=== PATIENT | female | born 1950 | race Caucasian/White ===

== ENCOUNTER 2021-01-05 09:29 | Inpatient (IN) | payer OTHER, SELFPAY ==
[~2021-01-05] VITALS: Ht 167.6 cm; Wt 103.0 kg
[2021-01-05 09:33] VITALS: BP_SYST 145
--- NOTE | 2021-01-05 09:33 | NUR ---
Placed in room 5 . Placed on cardiac monitor technician, blood pressure machine and pulse oximeter. To gown for exam. Side rails up. Report given to BJORN Saunders.
[2021-01-05] MEDS ORDERED: FUROSEMIDE 40 MG/4 ML VIAL IVP ONE (09:45)
--- NOTE | 2021-01-05 09:48 | NUR ---
Patient came to the ER due to her inability to get out of bed. The patient explained that she was sitting on her couch yesterday and was helped to bed and when she woke up this morning she was unable. Patient lower extremity has edema and patient is complaining of 2/10 pain in her thighs. Patient is AOx4 and not presenting any signs of respiratory distress. Patient on the gurney placed in the lowest position and side rails up.
--- NOTE | 2021-01-05 09:48 | NUR ---
ER Dr. Rey at bedside examining patient.
[2021-01-05 10:52] LABS: BASOPHILS % (AUTO) 0.3 % (0.0-2.0); EOSINOPHILS % (AUTO) 0.2 % (0.0-4.0); HEMATOCRIT 42.4 % (36-48); HEMOGLOBIN 13.9 g/dL (12.0-16.0); LYMPHOCYTES # (AUTO) 1.6 K/uL (1.0-5.5); LYMPHOCYTES % (AUTO) 15.2 % (20.5-51.5); MEAN CORPUSCULAR HEMOGLOBIN 29 pg (27-31); MEAN CORPUSCULAR HGB CONC 33 % (32-36); MEAN CORPUSCULAR VOLUME 89 fL (79.0-98.0); MONOCYTES # (AUTO) 0.4 K/uL (0.0-1.0); NEUTROPHILS # (AUTO) 8.6 K/uL (1.8-7.7); NEUTROPHILS % (AUTO) 80.3 % (40.0-70.0); PLATELET COUNT (AUTO) 209 K/uL (130-430); RED BLOOD CELL COUNT(AUTO) 4.78 MIL/uL (4.2-6.2); RED CELL DISTRIBUTION WIDTH 13.3 % (9.0-15.0); WHITE BLOOD COUNT (AUTO) 10.7 K/uL (4.8-10.8)
[2021-01-05 10:59] LABS: CALCIUM 9.2 mg/dL (8.4-11.0); CREATININE 0.64 mg/dL (0.55-1.30)
[2021-01-05 11:13] LABS: ALBUMIN 3.6 g/dL (3.4-4.8); THYROID STIMULATING HORMONE 1.13 uIu/mL (0.36-3.74); TOTAL BILIRUBIN 1.1 mg/dL (0.0-1.0)
[2021-01-05 11:25] LABS: BILIRUBIN,URINE NEGATIVE (NEGATIVE); BLOOD, URINE NEGATIVE (NEGATIVE); CLARITY/URINE CLEAR (CLEAR); COLOR,URINE YELLOW (YELLOW); GLUCOSE,URINE TRACE (NEGATIVE); KETONES,URINE 1+ (NEGATIVE); LEUKOCYTE ESTERASE ,URINE 1+ (NEGATIVE); NITRITE, URINE NEGATIVE (NEGATIVE); PROTEIN URINE NEGATIVE (NEGATIVE); UROBILINOGEN,URINE 0.2 (0.2-1.0)
--- NOTE | 2021-01-05 11:37 | NUR ---
During interviews with both RN and MD, patient denies any home medication. Received call from [facility] [phone] and was advised that he is not aware of any medication she is also taking.
[2021-01-05 11:40] LABS: BARBITURATE, URINE NEGATIVE (NEG <=200); BENZODIAZEPINE, URINE NEGATIVE (NEG <=150); CANNABINOID, URINE NEGATIVE (NEG <=50); COCAINE, URINE NEGATIVE (NEG <=150); METHAMPHETAMINES SCREEN,URINE NEGATIVE (NEG <=500); OPIATE, URINE NEGATIVE (NEG <=100); PHENCYCLIDINE SCREEN,URINE NEGATIVE (NEG <=25); UR TRICYCLIC ANTIDEPRESSANTS NEGATIVE (NEG <=300); URINE AMPHETAMINE NEGATIVE (NEG <=500); URINE METHADONE NEGATIVE (NEG <=200); URINE OXYCODONE SCREEN NEGATIVE (NEG <=100); URINE PROPOXYPHENE SCREEN NEGATIVE (NEG <=300)
[2021-01-05 12:17] LABS: BACTERIA,URINE FEW /HPF (None Seen); MUCUS,URINE 1+ /LPF (None Seen); RBC,URINE 0-3 /HPF (0-3)
--- NOTE | 2021-01-05 13:10 | NUR ---
Admit orders received from Dr. Escudero, pt will go to med-surg, talked to supercharger repair supervisor, Mya, pt will go to room 113B.
--- NOTE | 2021-01-05 14:25 | NUR ---
Patient will be admitted to care of Dr. Escudero. Admitted to MST unit. Will go to room 113B. Belongings list completed. Complete and up to date summary report printed. SBAR report to be given at bedside with opportunity for questions.
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
[2021-01-05 14:38] VITALS: BP_SYST 157
--- NOTE | 2021-01-05 15:36 | NUR ---
Family Communication Brother Oscar called from [phone] and stated that he was going to bring clothes and cell phone to hospital and leave in front. He will call once he does this. He also stated that pt is [place] due to her hearing aids being broke for over a year. He states that pt allowed her car which was leased to go back and has not really been anywhere since retiring last April. He states pt edema has been worsening but pt would not go to the doctor. He states that pt sits in her recliner and watches tv most of the time.
--- NOTE | 2021-01-05 16:10 | NUR ---
Wound Evaluation: Late note for 1610 secondary to patient care. Wound Consult ordered for Low Luc Score. Patient evaluated for a low Luc score of 12. Patient received in a Jelm Bed with an Isoflex ADRIANA mattress. Patient needs assist to turn in bed. Skin assessment: 1. Left Breast Fold: Intertrigo with erythema, present on admission. 2. Right Breast Fold: Intertrigo with erythema, present on admission. 3. Abdominal Fold: Intertrigo with erythema, present on admission. 4. Left Posterior Knee/Popliteal Fossa area: Intertrigo with erythema, present on admission. 5. Right Left Posterior Knee/Popliteal Fossa area: Intertrigo with erythema, present on admission. Recommend: Cleanse involved areas with mild soap and water. Pat dry. Apply antifungal powder to involved areas, Dust off excess powder. Cut Inter-dry AG cloth to size and place in between fold area. Perform site care twice daily. Change Inter-dry Ag cloth Q 5 days, and as needed for cloth soiling. 6. Left Inguinal area: Erythema from IAD, present on admission. 7. Right Inguinal area: Erythema from IAD, present on admission. 8. Perineal area: Erythema from IAD, present on admission. Recommend: Cleanse involved areas with mild soap and water. Pat dry. Apply Moisture barrier cream to involved areas. Perform site care 4 times daily and as needed for soiling. 9. Buttocks: Erythema from IAD, present on admission. Recommend: Cleanse involved area with mild soap and water. Pat dry. Apply Moisture barrier cream to involved area. Perform site care 4 times daily and as needed for soiling. 10. Sacral-Coccygeal area: Recommend: Cleanse involved area with mild soap and water. Pat dry. Apply Moisture barrier cream to involved area. Cover site with Sacral foam dressing. Perform site care daily and as needed for dressing soiling or dislodgment. Recommend encourage and assist patient as needed with repositioning side to side only every 2 hours with pillow support. Elevate, off-load and float bilateral heels with pillows. Offload pressure areas with pillows for pressure re-distribution. Perform skin care and monitor skin integrity Q shift. Use moisture barrier cream on moisture susceptible areas QID and PRN for soiling. Initiate low air-loss therapy.
[2021-01-05] MEDS ORDERED: LORazepam 2 MG/ML VIAL IVP PRN (19:00)
[2021-01-05] MEDS ORDERED: ONDANSETRON HCL 4 MG/2 ML VIAL IVP PRN (19:00)
[2021-01-05] MEDS ORDERED: ACETAMINOPHEN 325 MG TABLET PO PRN (19:00)
[2021-01-05] MEDS ORDERED: HYDROcodone/ACETAMIN 5-325 MG TAB (NORCO/ VICODIN) PO PRN (19:00)
[2021-01-05] MEDS ORDERED: NALOXONE HCL 0.4 MG/ML AMP (NARCAN) IVP PRN ×2 (19:00)
[2021-01-05] MEDS ORDERED: HYDROcodone/ACETAMIN 10-325 MG TAB PO PRN (19:00)
--- NOTE | 2021-01-05 19:30 | NUR ---
OPENING NOTE Patient is awake, alert, in bed, bed locked and in lowest position, bed alarm on, walker at bedside, respirations even and unlabored, on room air, call light within reach, will continue to monitor.
[2021-01-05 20:00] VITALS: BP_SYST 139
--- NOTE | 2021-01-05 21:00 | NUR ---
Rounding Note Patient is asleep, in bed, bed locked and in lowest position, respirations even and unlabored, no signs of respiratory distress, on room air, FWW and call light within reach. Will continue to monitor.
[2021-01-05] MEDS: INSULIN REGULAR, HUMAN 100 UNITS/ML, 10 ML VIAL (humuLIN R) SUBCUT PRN (21:34)
[2021-01-05] MEDS: FUROSEMIDE 20 MG/2 ML VIAL IVP SCH (21:37)
[2021-01-05] MEDS: NYSTATIN 15 GM TOPICAL POWDER TP SCH (21:37)
[2021-01-05] MEDS: NORMAL SALINE 5 ML DISP.SYRIN IVF SCH ×2 (21:42→21:43)
[2021-01-06 00:07] VITALS: BP_SYST 132
[2021-01-06] MEDS: NORMAL SALINE 5 ML DISP.SYRIN IVF SCH ×6 (05:51→21:01)
[2021-01-06] MEDS: INSULIN REGULAR, HUMAN 100 UNITS/ML, 10 ML VIAL (humuLIN R) SUBCUT PRN ×3 (06:24→20:49)
[2021-01-06 06:53] LABS: BASOPHILS % (AUTO) 0.3 % (0.0-2.0); EOSINOPHILS # (AUTO) 0.2 K/uL (0.0-0.4); EOSINOPHILS % (AUTO) 2.1 % (0.0-4.0); HEMATOCRIT 39.6 % (36-48); HEMOGLOBIN 13.1 g/dL (12.0-16.0); LYMPHOCYTES % (AUTO) 26.9 % (20.5-51.5); MEAN CORPUSCULAR HEMOGLOBIN 29 pg (27-31); MEAN CORPUSCULAR HGB CONC 33 % (32-36); MEAN CORPUSCULAR VOLUME 88 fL (79.0-98.0); NEUTROPHILS # (AUTO) 6.8 K/uL (1.8-7.7); NEUTROPHILS % (AUTO) 61.7 % (40.0-70.0); PLATELET COUNT (AUTO) 194 K/uL (130-430); RED BLOOD CELL COUNT(AUTO) 4.53 MIL/uL (4.2-6.2); RED CELL DISTRIBUTION WIDTH 13.3 % (9.0-15.0)
--- NOTE | 2021-01-06 06:54 | NUR ---
Closing Note Patient is asleep, in bed, bed locked and in lowest position, respirations even and unlabored, no signs of respiratory distress, on room air, FWW and call light within reach. Will continue to monitor, will endorse to day shift RN
[2021-01-06 07:06] LABS: CALCIUM 8.8 mg/dL (8.4-11.0); CREATININE 0.61 mg/dL (0.55-1.30); POTASSIUM 3.3 mmol/L (3.5-5.1)
[2021-01-06 08:00] VITALS: BP_SYST 122
--- NOTE | 2021-01-06 09:00 | NUR ---
SKIN ASSESMENT PATIENT'S SOAKED WITH URINE BUT DENIED THAT SHE PEE, STATED THAT WATER SPILLED, BOTH LEGS ARE SWOLLEN UNABLE TO MOVE DUE TO SIZE OF THE LEGS, PATIENT SCREAM ONCE YOU DO THE PERICARE, NEEDS 2 PEOPLE TO OPEN BOTH LEGS TO CLEAN THE PERIAREA. WITH REDNESS BUTTOCKS, BOTH CREASES ON KNEE ARE ARE RED, ABDOMINAL FOLD SLIGHT RED, APPLIED INTER AG DRY TO FOLDED AREAS, CREAM OINTMENT APPLIED TO BUTTOCKS AREA, WITH SCABS ON RIGHT FOOT, 3RD TOES. PICTURES TAKEN ON SKIN BREAKDOWN, ON AIR MATTRESS, TURNED AND REPOSITONED, SPONGE BATH PROVIDED TO PATIENT.
--- NOTE | 2021-01-06 09:20 | NUR ---
Nutrition Update Luc Scale 18 noted. Pt admitted for edema. Diet: cardiac, CCHO standard carb-60 gm BMI: 36.8 kg/m2 RD to follow per nutrition care standards.
[2021-01-06] MEDS: FUROSEMIDE 20 MG/2 ML VIAL IVP SCH ×2 (09:30→20:54)
--- NOTE | 2021-01-06 09:40 | NUR ---
FORRESTER CATH: # 16 FR Forrester catheter with 10 cc bulb inserted with use of sterile technique. Bulb inflated with 10 cc sterile water. Immediate return of 300 cc YELLOWISH urine noted. Bedside drainage bag placed below level of bladder. Urine sample collected and sent to lab. Pt tolerated procedure.
--- NOTE | 2021-01-06 11:05 | NUR ---
Case mgt: Met w/pt at bedside-Pt indicates she is independent w/ADLS, but uses FWW at home and lives with her brother Eagle and son in single story home.May need PT eval (nurse Charisse made aware). Per nurse Mcqueen, pt unable to move her legs and incontinent of urine, on Lasix, and valladares cath was inserted.DCP is to return home with possible home health. Per pt, brother or son will pick her up when discharged home. TYLOR MILAN
[2021-01-06 11:09] VITALS: BP_SYST 127
[2021-01-06] MEDS: NYSTATIN 15 GM TOPICAL POWDER TP SCH ×2 (12:21→21:02)
[2021-01-06 12:45] LABS: BILIRUBIN,URINE NEGATIVE (NEGATIVE); BLOOD, URINE 1+ (NEGATIVE); CLARITY/URINE CLEAR (CLEAR); COLOR,URINE YELLOW (YELLOW); GLUCOSE,URINE NEGATIVE (NEGATIVE); KETONES,URINE 1+ (NEGATIVE); LEUKOCYTE ESTERASE ,URINE NEGATIVE (NEGATIVE); NITRITE, URINE NEGATIVE (NEGATIVE); PROTEIN URINE NEGATIVE (NEGATIVE); UROBILINOGEN,URINE 0.2 (0.2-1.0)
[2021-01-06 12:52] LABS: BACTERIA,URINE RARE /HPF (None Seen); MUCUS,URINE 1+ /LPF (None Seen); RBC,URINE 0-3 /HPF (0-3); WBC,URINE 0-3 /HPF (0-3)
--- NOTE | 2021-01-06 13:00 | NUR ---
PATIENT'S BROTHER CALL RE PATIENTS SITUATION AT HOME BROTHER OF PATIENT WAS CONCERNED THAT PATIENT HAS ALZHEIMER, PER BROTHER THEY HAVE A FAMILY HISTORY OF ALZHEIMERS, NOTED PATIENT WITH EPISODES OF CONFUSION. PATIENT LIVE WITH HIS BROTHER WHO WORKS DURING THE DAY AND CONCERN THAT PATIENT IS ALONE AT HOME, REQUESTED FOR REHAB UPON DISCHARGE
--- NOTE | 2021-01-06 14:00 | NUR ---
SEEN BY DR PLATT ORDERED FOR PHYSICAL THERAPY, CONSULT WITH DR VAIL FOR POSSIBLE ALZHEIMER.
--- NOTE | 2021-01-06 14:25 | NUR ---
HIGH ALERT NOTE: DR. PLATT WAS HERE AND GAVE ORDER FOR LOVENOX 30MG SQ qHS FOR DVT PROPHYLAXIS.
--- NOTE | 2021-01-06 14:36 | NUR ---
CONSULTATION PAGED/CALLED Reason for Consultation: [] CONFUSION (FAMILY HAS HX OF ALZEIMERS) Person Who was Notified: [] DR CARTY Consulting Physician: [] DR CARLOZ CHAVEZ Stereotype Finisher Specialty: [] NEUROLOGY Ordering Physician: [] DR Yobani PLATT
--- NOTE | 2021-01-06 14:37 | NUR ---
CONSULTATION PAGED/CALLED Reason for Consultation: [] EDEMA Person Who was Notified: [] SERGE AGUIRRE INFORMED DR GARCÍA Consulting Physician: [] DR GARCÍA Sensory Scientist Specialty: [] NEPHROLOGY Ordering Physician: [] DR PLATT
--- NOTE | 2021-01-06 15:21 | NUR ---
CONSULTATION PAGED/CALLED Reason for Consultation: [] EDEMA Person Who was Notified: [] MARLENY Consulting Physician: [] DR Ivonne PLATT Orthopaedic Surgeon Specialty: [] CARDIOLOGY Ordering Physician: [ DR Yobani PLATT
--- NOTE | 2021-01-06 15:44 | NUR ---
Dietitian Recommendations * Recommend continuing cardiac[facility] * RD to provide nutrition education at bedside ROSA NOONAN Please refer to Nutrition Assessment for details. Addendum: 01/06/21 at [address] Amended: Links added.
[2021-01-06 15:56] VITALS: BP_SYST 96
[2021-01-06] MEDS ORDERED: POTASSIUM CHLORIDE 20 MEQ/PKT PACKET PO ONE (16:00)
--- NOTE | 2021-01-06 16:30 | NUR ---
P.T UP WITH PHYSICAL THERAPY.
--- NOTE | 2021-01-06 16:46 | NUR ---
P.T. NOTES P.T. EVAL COMPLETED; REFER TO EVAL FOR DETAILS.
--- NOTE | 2021-01-06 19:08 | NUR ---
PT'S BROTHER GUERRERO UPDATED ABOUT PT'S STATUS. HE INDICATED HIS CONCERN ABOUT DC PLAN. TOLD HIM THAT THERE IS A DC PLAN ORDERED.
--- NOTE | 2021-01-06 19:30 | NUR ---
OPENING NOTE Patient is awake, alert, in bed, bed locked and in lowest position, bed alarm on, respirations even and unlabored, on room air, call light within reach, will continue to monitor.
[2021-01-06 20:00] VITALS: BP_SYST 118
[2021-01-06] MEDS: ENOXAPARIN SODIUM 40 MG/0.4 ML SYRINGE SUBCUT SCH (20:55)
--- NOTE | 2021-01-06 21:00 | NUR ---
PATIENT OFF THE UNIT TO GO TO CT.
--- NOTE | 2021-01-06 21:20 | NUR ---
Patient back from CT. No acute distress noted
--- NOTE | 2021-01-06 23:00 | NUR ---
Rounding Note Patient is asleep, in bed, bed locked and in lowest position, bed alarm on, respirations even and unlabored, no signs of respiratory distress, on room air, call light within reach. Will continue to monitor.
[2021-01-07 00:35] VITALS: BP_SYST 100
[2021-01-07] MEDS: NORMAL SALINE 5 ML DISP.SYRIN IVF SCH ×6 (06:11→20:59)
[2021-01-07] MEDS: INSULIN REGULAR, HUMAN 100 UNITS/ML, 10 ML VIAL (humuLIN R) SUBCUT PRN (06:13)
[2021-01-07 06:39] LABS: BASOPHILS % (AUTO) 0.4 % (0.0-2.0); EOSINOPHILS # (AUTO) 0.2 K/uL (0.0-0.4); EOSINOPHILS % (AUTO) 1.8 % (0.0-4.0); HEMATOCRIT 36.9 % (36-48); LYMPHOCYTES # (AUTO) 2.9 K/uL (1.0-5.5); MEAN CORPUSCULAR HEMOGLOBIN 29 pg (27-31); MEAN CORPUSCULAR HGB CONC 33 % (32-36); MEAN CORPUSCULAR VOLUME 88 fL (79.0-98.0); MONOCYTES # (AUTO) 0.9 K/uL (0.0-1.0); MONOCYTES % (AUTO) 8.9 % (1.7-9.3); NEUTROPHILS # (AUTO) 6.1 K/uL (1.8-7.7); NEUTROPHILS % (AUTO) 59.9 % (40.0-70.0); PLATELET COUNT (AUTO) 180 K/uL (130-430); RED CELL DISTRIBUTION WIDTH 13.4 % (9.0-15.0); WHITE BLOOD COUNT (AUTO) 10.1 K/uL (4.8-10.8)
[2021-01-07 07:07] LABS: CALCIUM 8.4 mg/dL (8.4-11.0); CREATININE 0.57 mg/dL (0.55-1.30); POTASSIUM 3.2 mmol/L (3.5-5.1)
[2021-01-07 08:00] VITALS: BP_SYST 124
--- NOTE | 2021-01-07 08:00 | NUR ---
Opening note: Pt awake, alert and verbally responsive. AOx4. Denies pain or discomfort. No acute distress noted. Respirations even and unlabored on RA. IV L hand intact, no redness or swelling noted. Bed in low position, call light within reach, WCTM.
[2021-01-07] MEDS: NYSTATIN 15 GM TOPICAL POWDER TP SCH ×2 (09:00→20:58)
[2021-01-07] MEDS: FUROSEMIDE 20 MG/2 ML VIAL IVP SCH ×2 (10:54→20:50)
[2021-01-07] MEDS: POTASSIUM CHLORIDE 20 MEQ/PKT PACKET PO SCH (10:55)
[2021-01-07 12:16] VITALS: BP_SYST 136
[2021-01-07] MEDS ORDERED: POTASSIUM CHLORIDE 20 MEQ TAB.PRT.SR PO ONE (14:15)
[2021-01-07 15:34] VITALS: BP_SYST 119
--- NOTE | 2021-01-07 18:56 | NUR ---
Closing note: Pt stable resting in bed. Donovan intact, draining to gravity. Stable.
--- NOTE | 2021-01-07 19:30 | NUR ---
OPENING NOTES RECEIVED REPORT FROM DAY SHIFT RN. PT RESTING IN BED, BREATHING EVEN AND UNLABORED TO ROOM AIR. CHEST RISE AND FALL SYMMETRICAL. IV ON LEFT HAND 24G INTACT, SL. FORRESTER CATHETER INTACT, DRAINING BY GRAVITY. CALL LIGHT WITHIN REACH. SIDE RAILS UP X3. CLOSE TO NURSING STATION. BED ALARM ON, LOCKED IN LOWEST LEVEL. SAFETY AND FALL PRECAUTIONS MAINTAINED. WILL MONITOR.
[2021-01-07 20:00] VITALS: BP_SYST 130
[2021-01-07] MEDS: ENOXAPARIN SODIUM 40 MG/0.4 ML SYRINGE SUBCUT SCH (20:51)
[2021-01-08] VITALS: BP_SYST 142
[2021-01-08] MEDS: NORMAL SALINE 5 ML DISP.SYRIN IVF SCH ×6 (06:24→22:04)
[2021-01-08 06:35] LABS: BASOPHILS % (AUTO) 0.3 % (0.0-2.0); EOSINOPHILS # (AUTO) 0.2 K/uL (0.0-0.4); EOSINOPHILS % (AUTO) 1.9 % (0.0-4.0); HEMATOCRIT 36.5 % (36-48); LYMPHOCYTES # (AUTO) 2.4 K/uL (1.0-5.5); LYMPHOCYTES % (AUTO) 24.4 % (20.5-51.5); MEAN CORPUSCULAR HEMOGLOBIN 29 pg (27-31); MEAN CORPUSCULAR HGB CONC 33 % (32-36); MEAN CORPUSCULAR VOLUME 88 fL (79.0-98.0); MONOCYTES # (AUTO) 0.9 K/uL (0.0-1.0); MONOCYTES % (AUTO) 9.5 % (1.7-9.3); NEUTROPHILS # (AUTO) 6.2 K/uL (1.8-7.7); NEUTROPHILS % (AUTO) 63.9 % (40.0-70.0); PLATELET COUNT (AUTO) 165 K/uL (130-430); RED BLOOD CELL COUNT(AUTO) 4.13 MIL/uL (4.2-6.2); RED CELL DISTRIBUTION WIDTH 13.3 % (9.0-15.0); WHITE BLOOD COUNT (AUTO) 9.7 K/uL (4.8-10.8)
--- NOTE | 2021-01-08 06:54 | NUR ---
CLOSING NOTES PT RESTING IN BED, BREATHING EVEN AND UNLABORED TO ROOM AIR. IV ON LEFT HAND 24G INTACT, SL. FORRESTER CATHETER INTACT, DRAINING BY GRAVITY. CALL LIGHT WITHIN REACH. SIDE RAILS UP X3. CLOSE TO NURSING STATION. BED ALARM ON, LOCKED IN LOWEST LEVEL. SAFETY AND FALL PRECAUTIONS MAINTAINED. ALL NEEDS ARE MET THROUGHOUT SHIFT. WILL CONTINUE TO MONITOR UNTIL ENDORSE TO DAY SHIFT RN.
[2021-01-08 07:15] LABS: ALBUMIN 2.8 g/dL (3.4-4.8); CREATININE 0.55 mg/dL (0.55-1.30); PHOSPHORUS 3.7 mg/dL (2.7-4.5); POTASSIUM 3.4 mmol/L (3.5-5.1); TOTAL BILIRUBIN 1.2 mg/dL (0.0-1.0)
[2021-01-08 08:55] VITALS: BP_SYST 114
[2021-01-08] MEDS: NYSTATIN 15 GM TOPICAL POWDER TP SCH ×2 (08:55→22:08)
[2021-01-08] MEDS: FUROSEMIDE 20 MG/2 ML VIAL IVP SCH ×2 (08:55→22:04)
[2021-01-08] MEDS: POTASSIUM CHLORIDE 20 MEQ/PKT PACKET PO SCH (08:55)
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
[2021-01-08 12:18] VITALS: BP_SYST 134
--- NOTE | 2021-01-08 14:02 | NUR ---
SS notes: PROGRAM DIRECTOR/AIR PERSONALITY was referred by nursing to see patient for depression and living alone. PROGRAM DIRECTOR/AIR PERSONALITY met with patient at bedside. Pt was alert and oriented x4, calm and cooperative throughout the conversation. Pt appeared to be disheveled, with bright blue eye make-up on. Pt was normal in speech, and average eye contact. Per pt, brother Oscar and nephew Richard lives with her and drives her and cooks for her. Pt denies any mental health diagnosis and stated "we all get depressed sometimes, it's normal", but does not feel hopeless, stating "I've got dogs to take care of" and "a lot of positive things in my life". Pt denies suicide ideation, and stated "I say things I don't mean sometimes", and "I'm not gonna take my life". Pt identifies her brother Oscar as her support system. Pt does not see a therapist/psychiatrist. Sophie PEARSON updated. PROGRAM DIRECTOR/AIR PERSONALITY updated Carola MILAN and requested for safe tray until psych MD has seen patient. SS will remain available.
[2021-01-08 15:24] VITALS: BP_SYST 127
[2021-01-08] MEDS: ENOXAPARIN SODIUM 40 MG/0.4 ML SYRINGE SUBCUT SCH (22:08)
[2021-01-09 00:07] VITALS: BP_SYST 127
[2021-01-09] MEDS: NORMAL SALINE 5 ML DISP.SYRIN IVF SCH ×6 (06:00→22:00)
[2021-01-09 07:02] LABS: BASOPHILS % (AUTO) 0.3 % (0.0-2.0); EOSINOPHILS # (AUTO) 0.2 K/uL (0.0-0.4); EOSINOPHILS % (AUTO) 1.9 % (0.0-4.0); HEMATOCRIT 37.2 % (36-48); HEMOGLOBIN 12.3 g/dL (12.0-16.0); LYMPHOCYTES # (AUTO) 2.4 K/uL (1.0-5.5); LYMPHOCYTES % (AUTO) 24.7 % (20.5-51.5); MEAN CORPUSCULAR HEMOGLOBIN 29 pg (27-31); MEAN CORPUSCULAR HGB CONC 33 % (32-36); MEAN CORPUSCULAR VOLUME 88 fL (79.0-98.0); MONOCYTES # (AUTO) 0.7 K/uL (0.0-1.0); MONOCYTES % (AUTO) 7.3 % (1.7-9.3); NEUTROPHILS # (AUTO) 6.4 K/uL (1.8-7.7); NEUTROPHILS % (AUTO) 65.8 % (40.0-70.0); PLATELET COUNT (AUTO) 176 K/uL (130-430); RED BLOOD CELL COUNT(AUTO) 4.23 MIL/uL (4.2-6.2); RED CELL DISTRIBUTION WIDTH 13.3 % (9.0-15.0); WHITE BLOOD COUNT (AUTO) 9.8 K/uL (4.8-10.8)
[2021-01-09 07:38] LABS: CALCIUM 8.4 mg/dL (8.4-11.0); CREATININE 0.6 mg/dL (0.55-1.30); POTASSIUM 3.4 mmol/L (3.5-5.1)
[2021-01-09 08:00] VITALS: BP_SYST 128
[2021-01-09] MEDS: POTASSIUM CHLORIDE 20 MEQ/PKT PACKET PO SCH (08:35)
[2021-01-09] MEDS: FUROSEMIDE 20 MG/2 ML VIAL IVP SCH ×2 (08:35→21:38)
[2021-01-09] MEDS: NYSTATIN 15 GM TOPICAL POWDER TP SCH ×2 (08:35→21:42)
--- NOTE | 2021-01-09 10:51 | NUR ---
CM Note: s/w brother/E[facility]: He bought a new electric chair lift which will be delivered tomorrow after 4 pm. He will take pt home and will care for the pt. He already signed the Medicare Part B for the pt. The plan is effective April 26. The pt does not have funds for or short term snf. He will apply [employer] for the patient today.
[2021-01-09 11:36] VITALS: BP_SYST 128
--- NOTE | 2021-01-09 13:08 | NUR ---
Nutrition F/U Admitting Diagnosis: Edema Medical History Comment: PMH: DM per physician notes SARS-CoV-2 Ag (Rapid) Negative 01/05 Subjective Information: Pt seen in bed, upset because she wanted to go home. Pt is a/w psych consult. Luc score is 18, no pressure injury documented, 4+ pitting edema to BLE per fire crew specialist. Abd is soft and nondistended w/ active bowel sounds. PO intake has been poor for the past 4 days (28% average of 11 meals). Diet education previously addressed by RD, please see interdisciplinary Teaching Record for details. Pt w/ no BM since admission, and she associates this w/ poor PO intake. RD rec to add Glucerna BID to optimize PO and pt agreed. Current Diet Order/Nutrition Support: Cardiac, CCHO standard carb-60 gm x3 days Pertinent Medications: lasix, SSI, KCl Packet, Lovenox, Zofran Pertinent Labs: 01/09: Na 143 WNL, K 3.4L, BG 112H, BUN 12WNL, Cre 0.6WNL Height (Feet) 5 feet Height (Inches) 6.00 inches Weight (Pounds) 227 pounds Weight (Calculated Kilograms) 102.288451 kilograms Patient Weight 102.965 kg Body Mass Index 36.63 kg/m2 [place]/Adjusted Body Weight IBW: 130#/59 kg. Adj IBW (obesity): 154#/70 kg. Current % PO Poor (28% average of 11 meals) Estimated Energy Expenditure (kcals/day) 9208-8604 kcal/day (25-30 kcal/kg Adj IBW for geriatric maintenance) Estimated Protein Required (g/day) 70-84 gm/day (1-1.2 gm/kg Adj IBW for geriatric maintenance) Estimated Fluid Required (l/day) 1.8-2.1 L/day (1 ml/kcal/day for geriatric maintenance) Problem/Etiology/Signs/Symptoms Altered nutrition-related labs related to endocrine dysfunction as evidenced by elevated BG lab values. (*ongoing) Inadequate protein-energy intake r/t poor appetite AEB PO intake meets <28% average of 11 meals. (*ongoing) Expected Outcomes/Goals - Monitor appetite and PO intakes w/ goal of pt meeting at least 75% of estimated nutritional needs, labs trending WNL, normal GI function, and skin integrity/wt maintenance Dietitian Recommendations * Recommend continuing cardiac, CCHO standard carb-60 gm diet * Recommend: add Glucerna BID to optimize PO. Follow Up High Risk: F/U in 2-3days Addendum: 01/09/21 at [address] Per notes, pt w/: Mild cognitive disorder, suicidal ideation, depression, debility.
--- NOTE | 2021-01-09 13:19 | NUR ---
Dietitian Recommendations * Recommend continuing cardiac, CCHO standard carb-60 gm diet * Recommend: add Glucerna BID to optimize PO. Please see Nutrition F/U note for details. HANNA, RD
[2021-01-09 15:51] VITALS: BP_SYST 117
[2021-01-09 20:00] VITALS: BP_SYST 117
[2021-01-09] MEDS: ENOXAPARIN SODIUM 40 MG/0.4 ML SYRINGE SUBCUT SCH (21:41)
[2021-01-10 01:47] VITALS: BP_SYST 116
[2021-01-10] MEDS: NORMAL SALINE 5 ML DISP.SYRIN IVF SCH ×6 (06:17→22:00)
[2021-01-10 06:27] LABS: BASOPHILS % (AUTO) 0.4 % (0.0-2.0); EOSINOPHILS # (AUTO) 0.3 K/uL (0.0-0.4); EOSINOPHILS % (AUTO) 2.7 % (0.0-4.0); HEMATOCRIT 39.4 % (36-48); LYMPHOCYTES # (AUTO) 2.5 K/uL (1.0-5.5); LYMPHOCYTES % (AUTO) 25.3 % (20.5-51.5); MEAN CORPUSCULAR HEMOGLOBIN 29 pg (27-31); MEAN CORPUSCULAR HGB CONC 33 % (32-36); MEAN CORPUSCULAR VOLUME 88 fL (79.0-98.0); MONOCYTES # (AUTO) 0.8 K/uL (0.0-1.0); NEUTROPHILS # (AUTO) 6.3 K/uL (1.8-7.7); NEUTROPHILS % (AUTO) 63.6 % (40.0-70.0); PLATELET COUNT (AUTO) 188 K/uL (130-430); RED BLOOD CELL COUNT(AUTO) 4.47 MIL/uL (4.2-6.2); RED CELL DISTRIBUTION WIDTH 13.4 % (9.0-15.0); WHITE BLOOD COUNT (AUTO) 9.8 K/uL (4.8-10.8)
[2021-01-10 07:20] LABS: CALCIUM 8.5 mg/dL (8.4-11.0); CREATININE 0.57 mg/dL (0.55-1.30); PHOSPHORUS 3.9 mg/dL (2.7-4.5); POTASSIUM 3.5 mmol/L (3.5-5.1)
[2021-01-10 08:00] VITALS: BP_SYST 117
[2021-01-10] MEDS: NYSTATIN 15 GM TOPICAL POWDER TP SCH ×2 (08:26→20:20)
[2021-01-10] MEDS: POTASSIUM CHLORIDE 20 MEQ/PKT PACKET PO SCH (08:26)
[2021-01-10] MEDS: FUROSEMIDE 20 MG/2 ML VIAL IVP SCH ×2 (08:33→20:13)
--- NOTE | 2021-01-10 08:50 | NUR ---
Patient refused treatment today because she is anticipating going home today. Plan: attempt later.
[2021-01-10 12:26] VITALS: BP_SYST 118
[2021-01-10] MEDS ORDERED: POTASSIUM CHLOR 20 mEq/Packet PO (13:30)
[2021-01-10] MEDS ORDERED: LASI20 PO (13:30)
--- NOTE | 2021-01-10 13:55 | NUR ---
SPOKE TO THE PATIENTS BROTHER AND HE STATED THE CHAIR WON'T BE DELIVERED UNTIL LATER ON TODAY HOWEVER HIM AND HIS SON HAVE ALREADY WENT TO WORK AND ARE UNABLE TO PICK HER UP UNTIL THE AM.
--- NOTE | 2021-01-10 14:23 | NUR ---
SS notes: CANCER REGISTRAR phoned Dr. Schuler (p:[phone]) and left a voicemail that a psych consult is needed for a patient that is discharging tomorrow. Provided office with room #, nurse name and phone #. SS will remain available.
--- NOTE | 2021-01-10 15:00 | NUR ---
HOLD DISCHARGE PATIENT LIVES WITH HIS BROTHER WHO IS AT WORK RIGHT NOW, WILL NOT BE HOME TILL MIDNIGHT. NO ONE AT HOME AND NO ONE WILL COMPRESSOR HOUSE OPERATOR THE PATIENT, PATIENT IS RISK FOR FALL NEEDS ASSISTANCE AT HOME. AWAITING FOR PSYCHIATRIST TO SEE PATIENT.
--- NOTE | 2021-01-10 15:11 | NUR ---
CONSULTATION PAGED/CALLED Reason for Consultation: EARLY DEMENTIA Person Who was Notified: EARLENE Consulting Physician: BRITANY Ordering Physician: LC
[2021-01-10 16:33] VITALS: BP_SYST 125
[2021-01-10] MEDS: ENOXAPARIN SODIUM 40 MG/0.4 ML SYRINGE SUBCUT SCH (20:16)
[2021-01-11 00:28] VITALS: BP_SYST 125
[2021-01-11] MEDS: NORMAL SALINE 5 ML DISP.SYRIN IVF SCH ×2 (06:52)
[2021-01-11 08:00] VITALS: BP_SYST 111
--- NOTE | 2021-01-11 08:41 | NUR ---
FAMILY MEMBER WILL BE AVAILABLE TO PICK THE PATIENT UP AT 11 AM TODAY.
[2021-01-11] MEDS: FUROSEMIDE 20 MG/2 ML VIAL IVP SCH (09:00)
[2021-01-11] MEDS: NYSTATIN 15 GM TOPICAL POWDER TP SCH (09:18)
[2021-01-11] MEDS: POTASSIUM CHLORIDE 20 MEQ/PKT PACKET PO SCH (09:18)
--- NOTE | 2021-01-11 09:45 | NUR ---
PATIENT REFUSED TREATMENT. SHE IS ANTICIPATING GOING HOME TODAY.
[2021-01-11 10:08] VITALS: BP_SYST 123
--- NOTE | 2021-01-11 11:29 | NUR ---
PATIENT IS BEING DISCHARGED. ALL PAPERWORK GIVEN AND EXPLAINED TO PATIENT. SHE HAS HER PRESCRIPTIONS WELL THAT WERE WRITTEN. I SPOKE TO THE BROTHER CLARITA AGAIN TODAY THIS MORNING REGARDING HER CARE AND TELECOMMUNICATIONS REPAIRER TIME. PATIENTS FORRESTER WAS DISCONTINUED AND SHE DID URINATE A LITTLE AFTERWARDS. PATIENT WAS ABLE TO STAND AND GET DRESSED AND WALK A FEW STEPS. VSS. BLOOD SUGAR WAS STABLE. NO OTHER ISSUES HAVE BEEN NOTED. PATIENT IS TO SEE PCP AND MENTAL HEALTH FOLLOW UP.
[2021-01-11 11:48] VITALS: BP_SYST 108
== END 2021-01-11 11:20 | disposition home or self-care (01) | DRG 606 ==
LOC: SED 09:29 → SMU 13:08
PROVIDERS: ADMIT Preventive Medicine Preventive Medicine/Occupational Environmental Medicine; ATTEND Preventive Medicine Preventive Medicine/Occupational Environmental Medicine
DX: I89.0 Lymphedema, not elsewhere classified (principal); E43 Unspecified severe protein-calorie malnutrition; R45.851 Suicidal ideations; R60.0 Localized edema; E11.21 Type 2 diabetes mellitus with diabetic nephropathy; E11.65 Type 2 diabetes mellitus with hyperglycemia; E03.9 Hypothyroidism, unspecified; E87.6 Hypokalemia; Z20.822 Contact with and (suspected) exposure to COVID-19; F09 Unspecified mental disorder due to known physiological condition; F32.9 Major depressive disorder, single episode, unspecified; I87.2 Venous insufficiency (chronic) (peripheral); K80.20 Calculus of gallbladder without cholecystitis without obstruction; N28.1 Cyst of kidney, acquired; Z87.891 Personal history of nicotine dependence; Z68.36 Body mass index [BMI] 36.0-36.9, adult
CPT/HCPCS: 36415; 70450-TC; 71045; 76376; 80048; 80053; 80307; 81000-TC; 82043; 82570; 82962; 83735-TC; 83880; 83930-TC; 84100-TC; 84443-TC; 85025; 87086; 93005; 93306; 93970; 96374; 97110-GP; 97112-GP; 97116-GP; 97163; 97530-GP; J1650; J1815; J1940

== ENCOUNTER 2021-01-12 10:57 | Emergency (ER) | payer OTHER, SELFPAY ==
[~2021-01-12] VITALS: Ht 167.6 cm; Wt 122.5 kg
[~2021-01-12 10:57] MED LIST: LASI20 PO; POTASSIUM CHLOR 20 mEq/Packet PO
[2021-01-12 11:01] VITALS: BP_SYST 128
[2021-01-12 11:43] LABS: BASOPHILS % (AUTO) 0.2 % (0.0-2.0); EOSINOPHILS # (AUTO) 0.1 K/uL (0.0-0.4); EOSINOPHILS % (AUTO) 0.8 % (0.0-4.0); HEMATOCRIT 43.6 % (36-48); HEMOGLOBIN 14.2 g/dL (12.0-16.0); LYMPHOCYTES # (AUTO) 1.5 K/uL (1.0-5.5); LYMPHOCYTES % (AUTO) 11.8 % (20.5-51.5); MEAN CORPUSCULAR HEMOGLOBIN 29 pg (27-31); MEAN CORPUSCULAR HGB CONC 33 % (32-36); MEAN CORPUSCULAR VOLUME 88 fL (79.0-98.0); MONOCYTES # (AUTO) 0.9 K/uL (0.0-1.0); MONOCYTES % (AUTO) 7.6 % (1.7-9.3); NEUTROPHILS # (AUTO) 9.8 K/uL (1.8-7.7); NEUTROPHILS % (AUTO) 79.6 % (40.0-70.0); PLATELET COUNT (AUTO) 239 K/uL (130-430); RED BLOOD CELL COUNT(AUTO) 4.96 MIL/uL (4.2-6.2); RED CELL DISTRIBUTION WIDTH 13.5 % (9.0-15.0); WHITE BLOOD COUNT (AUTO) 12.3 K/uL (4.8-10.8)
[2021-01-12 11:51] LABS: ANION GAP 15 (5-15); CALCIUM 9.7 mg/dL (8.4-11.0); CHLORIDE 99 mmol/L (98-107); CREATININE 1.08 mg/dL (0.55-1.30); GLUCOSE 181 mg/dL (70-99); POTASSIUM 3.7 mmol/L (3.5-5.1); SODIUM SERUM 141 mmol/L (136-145); UREA NITROGEN, BLOOD 34 mg/dL (8-21)
[2021-01-12 11:59] LABS: ALANINE AMINOTRANSFERASE 29 U/L (12-78); ALBUMIN 4.2 g/dL (3.4-4.8); ASPARTATE AMINOTRANSFERASE 26 U/L (10-37); TOTAL BILIRUBIN 1.5 mg/dL (0.0-1.0)
[2021-01-12 12:15] LABS: GFR AFRICAN AMERICAN 65 mL/min (>90)
[2021-01-12 13:09] VITALS: BP_SYST 122
== END 2021-01-12 13:16 | disposition home or self-care (01) ==
LOC: SED 10:57
DX: R53.1 Weakness (principal); E11.9 Type 2 diabetes mellitus without complications
CPT/HCPCS: 36415; 71045; 80053; 84484; 85025; 93005; 99285

== ENCOUNTER 2022-07-30 14:50 | Emergency (ER) | payer OTHER, MEDICAID ==
[~2022-07-30] VITALS: Ht 170.2 cm; Wt 77.1 kg
[2022-07-30 15:00] VITALS: BP_SYST 119
[2022-07-30] MEDS ORDERED: APIX5TAB PO (21:09)
[2022-07-31 12:23] VITALS: BP_SYST 109
== END 2022-07-31 12:20 ==
LOC: SED 14:50
DX: I82.503 Chronic embolism and thrombosis of unspecified deep veins of lower extremity, bilateral (principal); R22.43 Localized swelling, mass and lump, lower limb, bilateral; Z79.899 Other long term (current) drug therapy
CPT/HCPCS: 72170-TC; 72192-TC; 76376; 93970; 99285